=== PATIENT | male | born 1970 | race Caucasian/White ===

== ENCOUNTER 2019-10-14 22:46 | Emergency (ER) | payer SELFPAY ==
[2019-10-14] MEDS ORDERED: ASPIRIN 81 MG TABLET, CHEWABLE PO ONE (23:16)
--- NOTE | 2019-10-14 23:18 | ER Document Report ---
ED Medical Screen (RME) - General Chief Complaint: Shoulder Pain Stated Complaint: CHEST PAIN,LEFT ARM NUMBNESS Time Seen by Provider: 10/14/19 23:15 Notes: Patient is a 45-year-old male who presents to the emergency department with a chief complaint of left chest pain. Patient reports this morning he woke up with left chest pain that radiates into his left arm. Patient reports that he did not have any injury or fall. Patient reports this is been intermittent throughout the day. Patient reports that the left chest pain and left shoulder pain is worse when he ambulates and walks as he does feel short of breath at the same time. Patient reports at first he thought it was musculoskeletal and was attempting to change position but this did not help with his discomfort. Patient reports he woke up from his nap diaphoretic. Patient reports earlier he did have a headache in which she did take Advil for and has since improved. Patient reports the Advil did not help with his left arm pain. - Related Data Allergies/Adverse Reactions: Penicillins Allergy (Verified 10/14/19 23:06) Physical Exam - Vital signs Vitals: Temp Pulse Resp BP Pulse Ox 97.7 F 65 16 143/95 H 98 10/14/19 22:59 10/14/19 22:59 10/14/19 22:59 10/14/19 22:59 10/14/19 22:59 - Cardiovascular Rhythm: Regular Heart sounds: Normal auscultation, S1 appreciated, S2 appreciated Notes: No reproducible chest pain with palpation. Pain is not exacerbated or worsened with the movement of his left shoulder. Course - Re-evaluation Re-evalutation: 10/14/19 23:18 I have greeted and performed a rapid initial assessment of this patient. A comprehensive ED assessment and evaluation of the patient, analysis of test results and completion of the medical decision making process will be conducted by additional ED providers. - Vital Signs Vital signs: Temp Pulse Resp BP Pulse Ox 97.7 F 65 16 143/95 H 98 10/14/19 22:59 10/14/19 22:59 10/14/19 22:59 10/14/19 22:59 10/14/19 22:59
[2019-10-14 23:36] LABS: ABSOLUTE BASOPHILS # (AUTO) 0.1 10^3/uL (0.0-0.2); ABSOLUTE EOSINOPHILS # (AUTO) 0.2 10^3/uL (0.0-0.6); ABSOLUTE LYMPHOCYTES (AUTO) 2.8 10^3/uL (0.5-4.7); ABSOLUTE MONOCYTES (AUTO) 0.5 10^3/uL (0.1-1.4); ABSOLUTE NEUT (AUTO) 2.5 10^3/uL (1.7-8.2); EOSINOPHILS % (AUTO) 2.9 % (0-6); HEMATOCRIT 43.6 % (37.9-51.0); HEMOGLOBIN 15.2 g/dL (13.5-17.0); LYMPHOCYTES % (AUTO) 46.9 % (13-45); MEAN CORPUSCULAR HEMOGLOBIN 31.7 pg (27.0-33.4); MEAN CORPUSCULAR HGB CONC 34.9 g/dL (32.0-36.0); MEAN CORPUSCULAR VOLUME 91 fl (80-97); MONOCYTES % (AUTO) 8.1 % (3-13); PLATELET COUNT 175 10^3/uL (150-450); RED BLOOD COUNT 4.81 10^6/uL (4.35-5.55); SEGMENTED NEUTROPHILS % (AUTO) 41.1 % (42-78); TOTAL CELLS COUNTED % (AUTO) 100 %; WHITE BLOOD COUNT 6.1 10^3/uL (4.0-10.5)
[2019-10-14 23:50] LABS: ALBUMIN 4.7 g/dL (3.5-5.0); ALKALINE PHOSPHATASE 59 U/L (38-126); ANION GAP 11 (5-19); ASPARTATE AMINO TRANSFERASE 30 U/L (17-59); BILIRUBIN,DIRECT 0.2 mg/dL (0.0-0.4); BILIRUBIN,TOTAL 0.5 mg/dL (0.2-1.3); BLOOD UREA NITROGEN 18 mg/dL (7-20); CALCIUM 9.5 mg/dL (8.4-10.2); CARBON DIOXIDE 28 mmol/L (22-30); CHLORIDE 103 mmol/L (98-107); GLUCOSE 120 mg/dL (75-110); TOTAL PROTEIN 7.8 g/dL (6.3-8.2)
--- NOTE | 2019-10-15 00:02 | RADIOLOGY REPORT (SQ) ---
EXAM DESCRIPTION: XR CHEST 2 VIEWS COMPLETED DATE/TME: 10/14/2019 23:16 CLINICAL HISTORY: 45 years, Male, chest pain COMPARISON: None. NUMBER OF VIEWS: 2 TECHNIQUE: LIMITATIONS: None. FINDINGS: Cardiomediastinal silhouette is normal rate lungs of low volume but grossly clear. No effusion. No pneumothorax IMPRESSION: No active intrathoracic disease. The cause of the patient's chest pain is not identified on this examination. copyright 2010 [employer]- All Rights Reserved
[2019-10-15 00:10] LABS: TROPONIN I 0.229 ng/mL
--- NOTE | 2019-10-15 00:13 | ER Document Report ---
ED General - General Chief Complaint: Shoulder Pain Stated Complaint: CHEST PAIN,LEFT ARM NUMBNESS Time Seen by Provider: 10/14/19 23:15 Mode of Arrival: Ambulatory Information source: Patient Notes: 45-year-old male with history of chest pain center of his chest radiating to his jaw neck area. Patient reports he noted this at work this morning he noted when he would walk that he would get this chest pain that would require him to stop walking and rest. He would become short of breath and sweaty with this. Patient continued to work the remaining part of the day trying to pace and cont rol his behavior and work activity to allow him to work the rest of the day. Patient states that whenever he exerted himself he would get further pain in his center of his chest radiating to his jaw. Patient finishes work today and went home and noted when he was trying to sleep that his pain persisted therefore he came to the emergency department. Patient was triaged and initial EKG showed a [address] elevation in lead V3 only with a peak T waves and in that V3 lead. It was a normal sinus rhythm with no acute reciprocal changes. Patient had a troponin leak that showed a level of 0.22. Patient was brought back to the emergency department room complaining of pain about 7 or 8 out of 10 with pain in the chest and radiating up to the jaw. Patient also noted that pain is now beginning to radiate to his left arm. His risk factors for cardiac disease are positive family history and he smokes cigarettes. Denies any diabetes hypertension or known history of cholesterol. Based on EKG findings and clinical setting the second EKG was done showing that there was at this point at least [address] elevation in V3 V2 and V3. With the contiguous ST elevations in 2 leads I call for STEMI. Discussed with the transfer service at [facility]. We faxed him the EKGs and orders have been written for thrombolytic therapy. Patient does not have any contraindication to receive thrombolytics at this time. - HPI Onset: Other - All day today. Pain Level: 5 - On a pain scale of 0-10 patient states his pain is been 8 out of 10. Associated symptoms: Chest pain, Nausea, Weakness, Other - Shortness of breath Exacerbated by: Walking, Other - Exertion Relieved by: Other - Rest Similar symptoms previously: No Recently seen / treated by doctor: No - Related Data Allergies/Adverse Reactions: Penicillins Allergy (Verified 10/14/19 23:06) Past Medical History - Social History Smoking Status: Current Every Day Smoker Family History: Reviewed & Not Pertinent Patient has suicidal ideation: No Patient has homicidal ideation: No Review of Systems - Review of Systems Constitutional: Other - Generalized weakness noted today particularly with activity. EENT: No symptoms reported Cardiovascular: Chest pain Respiratory: No symptoms reported Gastrointestinal: No symptoms reported Genitourinary: No symptoms reported Male Genitourinary: No symptoms reported Musculoskeletal: No symptoms reported Skin: No symptoms reported Hematologic/Lymphatic: No symptoms reported Physical Exam - Vital signs Vitals: Temp Pulse Resp BP Pulse Ox 97.7 F 65 16 143/95 H 98 10/14/19 22:59 10/14/19 22:59 10/14/19 22:59 10/14/19 22:59 10/14/19 22:59 Interpretation: Normal - Notes Notes: Moderate to severe distress - General General appearance: Appears well, Alert - HEENT Head: Normocephalic, Atraumatic Eyes: Normal Pupils: PERRL - Respiratory Respiratory status: No respiratory distress Chest status: Nontender Breath sounds: Normal Chest palpation: Normal - Cardiovascular Rhythm: Regular Heart sounds: Normal auscultation Murmur: No - Abdominal Inspection: Normal Distension: No distension Bowel sounds: Normal Tenderness: Nontender Organomegaly: No organomegaly - Back Back: Normal, Nontender - Extremities General upper extremity: Normal inspection, Nontender, Normal color, Normal ROM, Normal temperature General lower extremity: Normal inspection, Nontender, Normal color, Normal ROM, Normal temperature, Normal weight bearing. No: Traci's sign - Neurological Neuro grossly intact: Yes Cognition: Normal Orientation: AAOx4 Farnham Coma Scale Eye Opening: Spontaneous [place] Coma Scale Verbal: Oriented F[place] Coma Scale Motor: Obeys Commands Zacarias Coma Scale Total: 15 Speech: Normal Motor strength normal: LUE, RUE, LLE, RLE Sensory: Normal - Psychological Associated symptoms: Normal affect, Normal mood - Skin Skin Temperature: Warm Skin Moisture: Moist Skin Color: Normal Course - Re-evaluation Re-evalutation: 10/15/19 01:53 Patient resting comfortably at this time. Still has residual pain about 3 out of 5. Normal sinus rhythm on the rhythm strip rate of 59. Repeat troponin ordered pending at this time patient has been accepted to [facility]. 10/15/19 04:17 Patient resting comfortably no signs of distress at this time. Can troponin did rise to 0.3. Patient has been accepted to [facility] and hopefully will be going and transport transfer there earlier this a.m. - Vital Signs Vital signs: Temp Pulse Resp BP Pulse Ox 97.7 F 65 16 113/82 99 10/14/19 22:59 10/14/19 22:59 10/15/19 03:16 10/15/19 03:16 10/15/19 03:16 - Laboratory Result Diagrams: 10/14/19 23:24 10/15/19 02:20 Laboratory results interpreted by me: 10/14/19 10/14/19 10/14/19 23:24 23:24 23:24 Lymph % (Auto) 46.9 H Seg Neutrophils % 41.1 L Potassium Glucose 120 H Creatine Kinase NT-Pro-B Natriuret Pep 244 H 10/15/19 02:20 Lymph % (Auto) Seg Neutrophils % Potassium 3.5 L Glucose 114 H Creatine Kinase 190 H NT-Pro-B Natriuret Pep - Diagnostic Test Radiology reviewed: Image reviewed, Reports reviewed - EKG Interpretation by Me Additional EKG results interpreted by me: 10/15/19 00:54 Initial EKG around 2200 disclose a normal sinus rhythm with some peaked T waves noted in V3 with [address] elevation. No other acute changes noted. Second EKG done around 12:20 disclose normal sinus rhythm with ST elevation 1 mm in contiguous leads V2 and V3. I called with ST elevation KS at this time 10/15/19 00:59 Third EKG just completed around 12:55. EKG shows a normal sinus rhythm there is no peaked T waves at this time and ST elevation in the ED to V3 appears to be stable though less than 1 mm at this time. Clinically patient states that his pain has returned and is had improved to a level of 2 but now is going back up to about 3 with pain in the left shoulder left arm. 10/15/19 04:18 Fourth EKG done at 202 shows sinus bradycardia rate of [address] T wave changes at this time. Critical Care Note - Critical Care Note Total time excluding time spent on procedures (mins): 55 Discharge - Discharge Clinical Impression: Acute coronary syndrome with high troponin Condition: Critical Disposition: [facility]
[2019-10-15] MEDS: NITROGLYCERIN 0.4 MG/TAB 25 TAB/BOTTLE SL PRN ×2 (00:30→00:36)
[2019-10-15] MEDS ORDERED: NITROGLYCERIN 0.4 MG/TAB 25 TAB/BOTTLE SL PRN (00:32)
[2019-10-15] MEDS ORDERED: ASPIRIN 81 MG TABLET, CHEWABLE PO ONE (00:32)
[2019-10-15] MEDS ORDERED: ENOXAPARIN SODIUM INJ 30 MG/0.3 ML DISP.SYRIN IV ONE (00:32)
[2019-10-15] MEDS ORDERED: NITROGLYCERIN/D5W 50 MG/250 ML RTUINJ IV PRN (00:32)
[2019-10-15] MEDS ORDERED: TENECTEPLASE INJ 50 MG KIT IV ONE (00:32)
[2019-10-15] MEDS ORDERED: CLOPIDOGREL BISULFATE 300 MG TABLET PO ONE (00:32)
[2019-10-15] MEDS ORDERED: ACETAMINOPHEN 325 MG TABLET PO ONE (00:45)
[2019-10-15] MEDS ORDERED: ENOXAPARIN SODIUM INJ 80 MG/0.8 ML DISP.SYRIN SUBCUT ONE (00:55)
[2019-10-15] MEDS ORDERED: ONDANSETRON HCL INJ/PF 4 MG/2 ML SDV IV ONE (00:58)
[2019-10-15] MEDS ORDERED: ATORVASTATIN CALCIUM 40 MG TABLET PO ONE (01:20)
--- NOTE | 2019-10-15 02:14 | RADIOLOGY REPORT (SQ) ---
Chest single view on 10/15/2019 at 1:41 AM CLINICAL INDICATION: Chest pain COMPARISON: 10/14/2019 FINDINGS: The lungs are clear. Cardiac, hilar and mediastinal contours are within normal limits. Pulmonary vascularity is within normal limits. No bony abnormality is noted. IMPRESSION: No active disease.
[2019-10-15 02:42] LABS: INTERNATIONAL RATION (INR) 0.88; PROTHROMBIN TIME 11.9 SEC (11.4-15.4)
[2019-10-15 02:43] LABS: PARTIAL THROMBOPLASTIN TIME 28.4 SEC (23.5-35.8)
[2019-10-15 02:51] LABS: ANION GAP 8 (5-19); BLOOD UREA NITROGEN 16 mg/dL (7-20); CALCIUM 8.6 mg/dL (8.4-10.2); CARBON DIOXIDE 24 mmol/L (22-30); CHLORIDE 107 mmol/L (98-107); CREATINE KINASE 190 U/L (55-170); GLUCOSE 114 mg/dL (75-110); POTASSIUM 3.5 mmol/L (3.6-5.0)
--- NOTE | 2019-10-15 05:34 | EKG REPORT ---
SEVERITY:- OTHERWISE NORMAL ECG - SINUS BRADYCARDIA : Confirmed by: Dariana Turcios MD 15-Oct-2019 05:33:54
--- NOTE | 2019-10-15 05:34 | EKG REPORT ---
SEVERITY:- NORMAL ECG - SINUS RHYTHM : Confirmed by: Dariana Turcios MD 15-Oct-2019 05:34:01
--- NOTE | 2019-10-15 05:35 | EKG REPORT ---
SEVERITY:- NORMAL ECG - SINUS RHYTHM : Confirmed by: Dariana Turcios MD 15-Oct-2019 05:34:13
--- NOTE | 2019-10-15 05:35 | EKG REPORT ---
SEVERITY:- NORMAL ECG - SINUS RHYTHM : Confirmed by: Dariana Turcios MD 15-Oct-2019 05:34:08
[2019-10-15 06:32] LABS: HEMATOCRIT 39.2 % (37.9-51.0); HEMOGLOBIN 13.5 g/dL (13.5-17.0); MEAN CORPUSCULAR HEMOGLOBIN 31.5 pg (27.0-33.4); MEAN CORPUSCULAR HGB CONC 34.5 g/dL (32.0-36.0); MEAN CORPUSCULAR VOLUME 91 fl (80-97); PLATELET COUNT 159 10^3/uL (150-450); RED CELL DISTRIBUTION WIDTH 13.9 % (11.5-14.0); WHITE BLOOD COUNT 5.5 10^3/uL (4.0-10.5)
[2019-10-15 06:50] VITALS: BP 107/77
== END 2019-10-15 08:07 | disposition short-term general hospital (02) ==
LOC: ER 22:46 → EDBD 22:46 → ER 10-15 08:07
DX: I24.9 Acute ischemic heart disease, unspecified (principal); R79.89 Other specified abnormal findings of blood chemistry; R07.9 Chest pain, unspecified; M25.512 Pain in left shoulder; M79.602 Pain in left arm; R11.0 Nausea; R53.1 Weakness; R06.02 Shortness of breath; F17.200 Nicotine dependence, unspecified, uncomplicated; Z88.0 Allergy status to penicillin
CPT/HCPCS: 93005 ×2; 99291; 96372; 96374; 96375; 36415; 82553; 82550; 85025; 85027; 85610; 85730; 80048; 80053; 84484; 83880; 71046; 71045; 93010 ×2; J3490; J2405; J1650 ×2